=== PATIENT | female | born 1995 | race Caucasian/White ===

== ENCOUNTER 2021-06-02 12:52 | Outpatient (RCR) | payer OTHER, SELFPAY ==
[2021-06-02 14:21] LABS: Hematocrit 31.6 % (37.0-47.0); Hemoglobin 10.5 g/dL (12.0-15.0)
[2021-06-02 14:33] LABS: Glucose 1 Hour PP 50gm Dose 124 mg/dL
[2021-06-02 15:11] LABS: HIV 1/2 Ab P24 Ag Result Negative (Negative)
[2021-06-03 10:31] LABS: Rapid Plasma Reagin Non-Reactive (NonReactive)
[2021-06-03] MEDS: RHO(D) IMMUNE GLOBULIN 300 MCG/2 ML SYRINGE IM (11:41)
== END 2021-08-31 23:59 | disposition home or self-care (01) ==
LOC: ANHLAB 12:52
PROVIDERS: PCP Family Medicine; Visit Provider Obstetrics & Gynecology
DX: Z11.4 Encounter for screening for human immunodeficiency virus [HIV] (principal); Z29.13 Encounter for prophylactic Rho(D) immune globulin; O36.0130 Maternal care for anti-D [Rh] antibodies, third trimester, not applicable or unspecified; Z3A.00 Weeks of gestation of pregnancy not specified
CPT/HCPCS: 36415; 82947; 85014; 85018; 85461; 86592; 86703; 90384; 96372; G0432; J2790

== ENCOUNTER 2021-08-07 10:43 | Inpatient (IN) | payer OTHER, SELFPAY ==
[2021-08-07] VITALS (74 sets, daily range): BP systolic 93–129; BP diastolic 57–90; PULSE 63–137; RESP 12–19; TEMP 36.2; O2SAT 84–100; BMI 36.5
[2021-08-07 13:22] LABS: Basophils Absolute Auto 0.1 K/mm3 (0.0-0.1); Basophils Percent Auto 0.6 % (0.2-1.2); Eosinophils Absolute Auto 0.1 K/mm3 (0-0.3); Eosinophils Percent Auto 0.8 % (0-4.4); Hematocrit 35.6 % (37.0-47.0); Hemoglobin 11.9 g/dL (12.0-15.0); Immature Granulocyte Absolute 0.15 K/mm3 (0.00-0.031); Immature Granulocyte Percent A 1.8 % (0-0.5); Immature Platelet Fraction Pct 3.7 % (0.9-11.2); Lymphocytes Absolute Auto 1.75 K/mm3 (0.9-3.2); Lymphocytes Percent Auto 20.5 % (18.3-44.2); Mean Corpuscular HGB Conc 33.4 g/dl (32-36); Mean Corpuscular Hemoglobin 29.4 pg (26-34); Mean Corpuscular Volume 87.9 fl (80-100); Mean Platelet Volume 10.2 fl (7.4-10.4); Monocytes Absolute Auto 0.6 K/mm3 (0.1-0.6); Monocytes Percent Auto 7.1 % (2.6-8.5); Neutrophils Absolute Auto 5.9 K/mm3 (1.3-6.7); Neutrophils Percent Auto 69.2 % (45.5-73.1); Platelet Count Result 149 k/mm3 (150-375); Red Blood Count 4.05 M/mm3 (4.2-5.4); White Blood Count 8.5 K/mm3 (4.5-10.0)
[2021-08-07] MEDS: LACTATED RINGERS 1,000 ML 125 ML IV CONT ×2 (13:25→14:10)
--- NOTE | 2021-08-07 13:37 | LDADM ---
This patient, Kamlesh Pineda, was admitted to Labor/Delivery/Recovery 120 on 08/07/21 at 10:43. Plans for labor, pain management and were discussed with patient. Patient/family oriented to hospital policies and general routines including ID bracelet, bed and alarms, visiting hours, pain management, procedures, bathroom and other care routines, personal items, smoking policy, room service/diet and guest tray routines, security routines, and visiting hours. Patient/Family are encouraged to report perceived risks to care and to ask questions if they do not understand what they are told or what they should do. See OBIX for further documentation.
--- NOTE | 2021-08-07 14:50 | WPDANESEPPF ---
Anes - Initial Pre Proc Eval Procedure: Operation Date: 08/07/21 15:00 Proposed Procedures p Section - Twins with Bilateral Tubal Ligation - Veronica Stinson MD Date/Time: 08/07/21 14:50 Surgeon: Veronica Stinson MD Pre Op Diagnosis: C Section Patient Data Age: 25 Gender: F Height: 1.65 m Weight: 99.5 kg Last Vital Signs Pulse 105 H 08/07/21 13:46 BP 93/57 L 08/07/21 13:46 Allergies Allergy/AdvReac Type Severity Reaction Status Date / Time hydrocodone Allergy Unknown Rash Verified 07/03/21 16:30 Home Medications Medication Instructions Recorded Confirmed Type sertraline 50 mg tablet 75 mg PO DAILY #145 tablet 10/02/20 07/03/21 Rx [id number] fumarate-FA 1 tablet PO DAILY 08/07/21 08/07/21 History [] omeprazole [Prilosec] 20 mg PO DAILY 08/07/21 08/07/21 History propranolol 60 mg PO DAILY 08/07/21 08/07/21 History Laboratory Tests 08/07/21 08/07/21 13:09 13:09 WBC 8.5 K/mm3 K/mm3 (4.5-10.0) RBC 4.05 M/mm3 L M/mm3 (4.2-5.4) Hgb 11.9 g/dL L g/dL (12.0-15.0) Hct 35.6 % L % (37.0-47.0) MCV 87.9 fl fl (80-100) MCH 29.4 pg pg (26-34) MCHC 33.4 g/dl g/dl (32-36) RDW 16.0 % H % (11.5-14.5) Plt Count 149 k/mm3 L k/mm3 (150-375) MPV 10.2 fl fl (7.4-10.4) Immature Gran % (Auto) 1.8 % H % (0-0.5) Neut % (Auto) 69.2 % % (45.5-73.1) Lymph % (Auto) 20.5 % % (18.3-44.2) [place] % (Auto) 7.1 % % (2.6-8.5) Eos % (Auto) 0.8 % % (0-4.4) Baso % (Auto) 0.6 % % (0.2-1.2) Lymph # (Auto) 1.75 K/mm3 K/mm3 (0.9-3.2) [place] # (Auto) 0.6 K/mm3 K/mm3 (0.1-0.6) Eos # (Auto) 0.1 K/mm3 K/mm3 (0-0.3) Baso # (Auto) 0.1 K/mm3 K/mm3 (0.0-0.1) Abs Immat Gran (auto) 0.15 K/mm3 H K/mm3 (0.00-0.031) Absolute Neuts (auto) 5.9 K/mm3 K/mm3 (1.3-6.7) Absolute Nucleated RBC 0.0 K/mm3 K/mm3 (0.0-0.012) Nucleated RBC % 0.0 % % (0.0-0.2) % Immature Plt Fraction 3.7 % % (0.9-11.2) RPR Pending Patient hx anesthesia problems: none Family hx anesthesia problems: none PMFSH Surgical History Surgical History Status post cervical spinal fusion Family History Family History (Updated 07/28/21 @ 15:50 by Yessica Romero RN) Grandparent Family history of malignant neoplasm Carcinoma of colon Breast cancer Grandparent Breast cancer Social History Social History Smoking packs per day: 0.5 Smoking cigarettes per day: 10.0 Years smoked: 1 Smoking pack-years: 0.50 Smoking status: Former smoker Second hand tobacco smoke exposure: No Smoking end date: 11/21/15 Alcohol intake: never Substance use: never Spiritual care concerns: No Anes - Eval Final PreProcedure Day of Procedure 08/07/21 14:50 Patient weight: obese Heart: regular rate and rhythm Lungs: clear to auscultation and normal air movement Airway: Mallampati scale class II Neurological: alert and oriented Last oral intake: >/= 8 hours ASA classification: III Emergent: no Anesthetic plan: proceed Anesthesia type and monitoring: regional spinal Informed Consent: The patient's anesthetic plan and its attendant risks and benefits were discussed with the patient/family/POA. Questions were solicited and answers provided to the satisfaction of the patient/family/POA.
--- NOTE | 2021-08-07 15:09 | WPDHPUPDATE1 ---
History and Physical Update Update Date/Time: 08/07/21 15:09 History and Physical has been reviewed, including an updated exam of the patient. There are NO changes in the patient's condition. Risks, benefits, and alternatives have been discussed and questions answered. Patient agrees to proceed with procedure.
--- NOTE | 2021-08-07 15:10 | PM.IMHP ---
H&P: HPI History of Present Illness Date/Time: 08/07/21 15:10 this patient is a 25-year-old multiparous female with a twin gestation at 36 weeks gestation. She presents in labor. She has a previous delivery. There was reassuring status for the twins. She reports movement. She denies any loss of fluid or vaginal bleeding. She denies any headache, blurry vision, epigastric pain. She denies any chest pain or shortness of breath. She denies any nausea vomiting fevers chills. Chief Complaint: Labor, twins Review of Systems Review of Systems: All systems reviewed & are unremarkable except as noted in HPI and below PMFSH Surgical History Surgical History Status post cervical spinal fusion Family History Family History (Updated 07/28/21 @ 15:50 by Yessica Romero RN) Grandparent Family history of malignant neoplasm Carcinoma of colon Breast cancer Grandparent Breast cancer Social History Social History Smoking packs per day: 0.5 Smoking cigarettes per day: 10.0 Years smoked: 1 Smoking pack-years: 0.50 Smoking status: Former smoker Second hand tobacco smoke exposure: No Smoking end date: 11/21/15 Alcohol intake: never Substance use: never Spiritual care concerns: No Meds Home Medications and Allergies Home Medications Medication Instructions Recorded Confirmed Type sertraline 50 mg tablet 75 mg PO DAILY #145 tablet 10/02/20 07/03/21 Rx [id number] fumarate-FA 1 tablet PO DAILY 08/07/21 08/07/21 History [] omeprazole [Prilosec] 20 mg PO DAILY 08/07/21 08/07/21 History propranolol 60 mg PO DAILY 08/07/21 08/07/21 History Allergies Allergy/AdvReac Type Severity Reaction Status Date / Time hydrocodone Allergy Unknown Rash Verified 07/03/21 16:30 Vital Signs Vital Signs - 24 hr 08/07/21 13:23 08/07/21 13:31 08/07/21 13:46 Pulse Rate 93 100 105 H Blood Pressure 105/61 95/62 L 93/57 L Exam Const: General: healthy appearing, comfortable and no acute distress Resp: Auscultation: clear to auscultation bilaterally, no rales, no rhonchi and no wheezes Cardio: Rate: regular rate Heart sounds: no click, no murmurs and no rubs GI: Inspection: non-distended Auscultation: normal bowel sounds Extrem: General: normal to inspection, no pedal edema and no calf tenderness H&P: Results Labs Labs: Short CBC 08/07/21 Range/Units 13:09 WBC 8.5 (4.5-10.0) K/mm3 Hgb 11.9 L (12.0-15.0) g/dL Hct 35.6 L (37.0-47.0) % Plt Count 149 L (150-375) k/mm3 Assessment and Plan Assessment and plan (1) Twin gestation in third trimester: Code(s): O30.003 - Twin , unspecified number of placenta and unspecified number of amniotic sacs, third trimester Status: Acute (2) Active labor: Status: Acute (3) Previous section: Code(s): Z98.891 - History of uterine scar from previous surgery Status: Acute Additional Plan This patient is a 25-year-old multiparous female at 36 weeks gestation with twins and active labor. She has a previous delivery and we had agreed to perform repeat delivery. She understands the risks, benefits, and alternatives. She has completed the informed consent process and is ready to proceed.
[2021-08-07] MEDS: ceFAZolin 2 GM/D5W 50 ML 2 GM/50 ML BAG IVPB (15:31)
--- NOTE | 2021-08-07 16:28 | W.PM.PROC2 ---
Procedure Note - Detailed Date of Procedure 08/07/21 Pre-op Diagnosis Previous , twins, labor, a 36 week gestation Post-op Diagnosis same Procedure Performed Low-transverse section of twins Surgeon Veronica Stinson MD Anesthesia spinal Findings Normal gestational maternal anatomy, twin gestation-reasonable size/wait for 36 weeks, normal Apgars. Description of Procedure The patient was taken the operating room. She was prepped and draped in dorsal supine position with a leftward tilt. This was done after spinal anesthetic was applied. A low-transverse skin incision was made and carried down till of the fascia with the knife. The fascial incision was made with the knife. The fascial incision was extended laterally with Araujo scissors. The fascia was tented upward superiorly and inferiorly the rectus muscles were dissected off bluntly. The rectus muscles were the midline. The preperitoneal fat and peritoneum were dissected open bluntly at the superior aspect of the rectus muscles. The peritoneal incision was extended superior and inferior with good position of bladder. The uterine incision was made with a scalpel down to the level of the amniotic cavity. The amniotic cavity was entered bluntly. Baby a and B were both delivered breech. Arms reduced on each baby after delivering lower extremities and trunk. Head easily delivered. The cord of each was clamped and cut and the was handed off to waiting pediatric staff. Cord bloods were obtained. The placenta was removed manually. The uterus was exteriorized. The uterus was cleared of all clots, debris and membranes. The uterus was closed in 0 Vicryl running lock fashion. An imbricating over a was placed along the incision line as well. The uterus was returned to the abdomen. The gutters were cleared of all clots and debris. The fascia was closed with 0 Vicryl running fashion. The subcutaneous tissue was irrigated pinpoint bleeders were cauterized. The skin was closed with subcuticular absorbable johnathan. The skin incision line was covered with glue. The patient tolerated the procedure well. She has taken recovery room in stable condition. Sponge lap and needle counts were correct x2. Estimated Blood Loss 780 Complications No immediate complications Condition stable Disposition PACU
[2021-08-07] MEDS: OXYTOCIN 30 UNITS/NS 500 ML 30 UNITS/500 ML BAG 125 UNITS IV CONT ×2 (16:55→18:52)
--- NOTE | 2021-08-07 17:18 | SUR.PHASEI ---
1700--Dr. Stinson at BS to check on pt., orders received to increase current IVF rate and then hang another bag of pitocin at 125cc/hr after this one infuses.
--- NOTE | 2021-08-07 17:56 | SUR.PHASEI ---
3414--Update to Dr. Stinson re: bleeding and clots noted with fundal massage. No new orders received at this time.
--- NOTE | 2021-08-07 19:28 | OBPPTRN ---
Patient transferred to post room #277 via bed. Support person present. Oriented to unit, room, information board, rooming in, admission packet and security measures. Patient verbalizes understanding.
[2021-08-07] MEDS: KETOROLAC 30 MG/ML VIAL (*BKC) IV PUSH (19:54)
[2021-08-07] MEDS: PROPRANOLOL HCL 60 MG CAPSULE CR PO (21:38)
--- NOTE | 2021-08-07 21:50 | PC.NURSE ---
Mom to nursery per wheelchair to see babies
[2021-08-07] MEDS: DEXTROSE 5%/0.45% SOD CHL 1,000 ML 125 ML IV CONT (23:36)
[2021-08-08] VITALS (8 sets, daily range): BP systolic 88–98; BP diastolic 55–66; PULSE 63–91; RESP 16–18; TEMP 35.8–36.8; O2SAT 95–100
--- NOTE | 2021-08-08 00:15 | PC.NURSE ---
Pt returned from visiting babies in nursery. Pt back to bed.
[2021-08-08 04:45] LABS: Basophils Percent Auto 0.3 % (0.2-1.2); Eosinophils Percent Auto 0.3 % (0-4.4); Hematocrit 26.7 % (37.0-47.0); Hemoglobin 8.6 g/dL (12.0-15.0); Immature Granulocyte Absolute 0.07 K/mm3 (0.00-0.031); Immature Granulocyte Percent A 0.8 % (0-0.5); Lymphocytes Absolute Auto 1.46 K/mm3 (0.9-3.2); Lymphocytes Percent Auto 15.7 % (18.3-44.2); Mean Corpuscular HGB Conc 32.2 g/dl (32-36); Mean Corpuscular Hemoglobin 29.5 pg (26-34); Mean Corpuscular Volume 91.4 fl (80-100); Monocytes Absolute Auto 0.9 K/mm3 (0.1-0.6); Monocytes Percent Auto 9.7 % (2.6-8.5); Neutrophils Absolute Auto 6.8 K/mm3 (1.3-6.7); Neutrophils Percent Auto 73.2 % (45.5-73.1); Platelet Count Result 106 k/mm3 (150-375); Red Blood Count 2.92 M/mm3 (4.2-5.4); Red Cell Distribution Width 15.9 % (11.5-14.5); White Blood Count 9.3 K/mm3 (4.5-10.0)
--- NOTE | 2021-08-08 07:10 | PM.OBPNVD ---
OB - PN: Subj Subjective Date/time seen: 08/08/21 07:10 Patient comments: no complaints, pain well controlled, tolerating diet and flatus present baby status: doing well OB - PN: Obj Data Labs CBC & Chem 7: 08/08/21 04:18 Labs: Laboratory Results - last 24 hr 08/07/21 08/07/21 08/08/21 13:09 13:09 04:18 WBC 8.5 9.3 RBC 4.05 L 2.92 L Hgb 11.9 L 8.6 L D Hct 35.6 L 26.7 L MCV 87.9 91.4 MCH 29.4 29.5 MCHC 33.4 32.2 RDW 16.0 H 15.9 H Plt Count 149 L 106 L MPV 10.2 10.0 Immature Gran % (Auto) 1.8 H 0.8 H Neut % (Auto) 69.2 73.2 H Lymph % (Auto) 20.5 15.7 L [place] % (Auto) 7.1 9.7 H Eos % (Auto) 0.8 0.3 Baso % (Auto) 0.6 0.3 Lymph # (Auto) 1.75 1.46 [place] # (Auto) 0.6 0.9 H Eos # (Auto) 0.1 0.0 Baso # (Auto) 0.1 0.0 Abs Immat Gran (auto) 0.15 H 0.07 H Absolute Neuts (auto) 5.9 6.8 H Absolute Nucleated RBC 0.0 0.0 Nucleated RBC % 0.0 0.0 % Immature Plt Fraction 3.7 Blood Type O Negative Antibody Screen Negative Screen Baby's Blood Type Baby's TANGELA Doses of RhIg Required 08/08/21 04:18 WBC RBC Hgb Hct MCV MCH MCHC RDW Plt Count MPV Immature Gran % (Auto) Neut % (Auto) Lymph % (Auto) [place] % (Auto) Eos % (Auto) Baso % (Auto) Lymph # (Auto) [place] # (Auto) Eos # (Auto) Baso # (Auto) Abs Immat Gran (auto) Absolute Neuts (auto) Absolute Nucleated RBC Nucleated RBC % % Immature Plt Fraction Blood Type O Negative Antibody Screen TNP Screen Negative Baby's Blood Type A pos Baby's TANGELA Negative Doses of RhIg Required 1 OB - PN A/P Plan day: 1 Plan: routine care Time Spent With Patient Time: Total time spent is greater than 50% in coordination of care (as documented) at patient's floor/unit and/or counseling patient: Time with patient: less than 15 minutes Review of Systems Review of Systems: All systems reviewed & are unremarkable except as noted in HPI and below Exam Narrative: Fundus firm. Vaginal flow controlled. Incision dry and intact. Negative homans. No redness, warmth, or pain of lower ext. Const: General: comfortable Chest: Breast/axilla inspection: normal inspection of the breasts Resp: Effort & Inspection: normal respiratory effort Auscultation: clear to auscultation bilaterally Cardio: Rate: regular rate GI: GI Palp: Yes Soft to palpation Psych: Appearance: grossly normal Affect: normal affect Attitude: cooperative Thought content: Yes Normal thought content present Judgement: Good judgement present (Psych)
[2021-08-08] MEDS: MULTIVIT/MIN/PREN/FOL AC/IRON TABLET 1 TAB PO (08:28)
[2021-08-08] MEDS: IBUPROFEN 600 MG TABLET PO ×3 (08:29→21:29)
[2021-08-08] MEDS: POLYSACCHARIDE IRON COMPLEX 150 MG CAPSULE PO ×2 (08:29→16:07)
[2021-08-08] MEDS: DOCUSATE SODIUM 100 MG CAPSULE PO ×2 (08:29→16:07)
[2021-08-08] MEDS: oxyCODONE/ACETAMINOPHEN (*CRX) 5-325 MG TABLET 1 TABLET PO ×4 (08:30→21:29)
--- NOTE | 2021-08-08 08:41 | WPDANLDPN2 ---
Anes-Prog Note L&D Date/Time: 08/08/21 08:41 Comfortable throughout: section Neuraxial method: spinal Epidural/Spinal procedure site: clean & non-tender Neuro status: Neuro function grossly intact. Cardiovascular status: normal Respiratory status: normal Airway patency: baseline Mental status: baseline Post-Op hydration status: normal Vital Signs: Last Vital Signs Temp 98.0 F 08/08/21 05:00 Pulse 91 08/08/21 05:00 Resp 18 08/08/21 05:00 BP 93/57 L 08/08/21 05:00 Pulse Ox 99 08/08/21 05:00 Pain score (VAS): 0 I/O: Intake & Output 08/07/21 08/08/21 08/08/21 23:59 07:59 15:59 Intake Total 1000 750 Output Total 2114 800 Balance -1114 -50 Post-procedural complaints: pruritis mild, no treatment Patient feedback: Patient satisfied with anesthetic care.
--- NOTE | 2021-08-08 08:42 | WPDANLDNPN2 ---
Anes-Prog Note L&D-Neuraxial Date/Time: 08/08/21 08:42 Neuraxial medications: intrathecal PF morphine Opiod-related complaints: pruritis mild, no treatment (continues to have mild pruritis this morning, denies need for meds) Patient feedback: Patient satisfied with post-operative pain management.
[2021-08-08] MEDS: RHO(D) IMMUNE GLOBULIN 300 MCG/2 ML SYRINGE IM (17:47)
[2021-08-08] MEDS: SIMETHICONE 80 MG TAB.CHEW PO (21:29)
[2021-08-08] MEDS: PROPRANOLOL HCL 60 MG CAPSULE CR PO (21:30)
[2021-08-08] MEDS: TETANUS,DIPHTHERIA,AC PERTUSSIS ADULT (0.5 ML) BOOSTRIX IM (21:31)
[2021-08-09 05:00] VITALS: BP 90/58; PULSE 91; RESP 18; TEMP 36.8; O2SAT 95
[2021-08-09] MEDS: oxyCODONE/ACETAMINOPHEN (*CRX) 5-325 MG TABLET 1 TABLET PO ×3 (05:14→13:10)
[2021-08-09] MEDS: IBUPROFEN 600 MG TABLET PO ×2 (05:14→13:09)
[2021-08-09 05:46] LABS: Hematocrit 26.4 % (37.0-47.0); Hemoglobin 8.5 g/dL (12.0-15.0); Mean Corpuscular HGB Conc 32.2 g/dl (32-36); Mean Corpuscular Hemoglobin 29.3 pg (26-34); Mean Platelet Volume 9.8 fl (7.4-10.4); Platelet Count Result 128 k/mm3 (150-375); Red Cell Distribution Width 16.1 % (11.5-14.5); White Blood Count 8.7 K/mm3 (4.5-10.0)
[2021-08-09 08:30] VITALS: BP 108/65; PULSE 86; RESP 16; TEMP 36.4; O2SAT 99
[2021-08-09] MEDS: DOCUSATE SODIUM 100 MG CAPSULE PO (08:47)
[2021-08-09] MEDS: POLYSACCHARIDE IRON COMPLEX 150 MG CAPSULE PO (08:47)
[2021-08-09] MEDS: MULTIVIT/MIN/PREN/FOL AC/IRON TABLET 1 TAB PO (08:47)
--- NOTE | 2021-08-09 09:36 | PM.OBPNVD ---
OB - PN: Subj Subjective Date/time seen: 08/09/21 09:36 Patient comments: no complaints, pain well controlled, tolerating diet and flatus present Narrative: Babies both transferred but doing well. Pt desire discharge. Pt up walking in the halls without difficulty. OB - PN: Obj Data Labs CBC & Chem 7: 08/09/21 05:12 Labs: Laboratory Results - last 24 hr 08/08/21 08/09/21 04:18 05:12 WBC 8.7 RBC 2.90 L Hgb 8.5 L Hct 26.4 L MCV 91.0 MCH 29.3 MCHC 32.2 RDW 16.1 H Plt Count 128 L MPV 9.8 Blood Type O Negative Antibody Screen TNP Screen Negative Baby's Blood Type A pos Baby's TANGELA Negative Doses of RhIg Required 1 OB - PN A/P Plan day: 2 Plan: routine care and discharge home (Follow up in 1 week) Comments: Discharge home if repeat h&h and platelets stable. Time Spent With Patient Time: Total time spent is greater than 50% in coordination of care (as documented) at patient's floor/unit and/or counseling patient: Time with patient: less than 15 minutes Review of Systems Review of Systems: All systems reviewed & are unremarkable except as noted in HPI and below Exam Narrative: Fundus firm. Vaginal flow controlled. Incision dry and intact. Negative homans. No redness, warmth, or pain of lower ext. Const: General: comfortable Chest: Breast/axilla inspection: normal inspection of the breasts Resp: Effort & Inspection: normal respiratory effort Auscultation: clear to auscultation bilaterally Cardio: Rate: regular rate GI: GI Palp: Yes Soft to palpation Psych: Appearance: grossly normal Affect: normal affect Attitude: cooperative Thought content: Yes Normal thought content present Judgement: Good judgement present (Psych)
--- NOTE | 2021-08-09 11:34 | PC.NURSE ---
Patient instructed on viewing the discharge video Mother & Baby Care, The First Two Weeks . Patient was given the opportunity and encouraged to ask questions. Patient verbalized understanding of information shared and has been given the mother/baby guide for home reference.
[2021-08-09 12:48] LABS: Hematocrit 27.6 % (37.0-47.0); Hemoglobin 8.8 g/dL (12.0-15.0); Mean Corpuscular HGB Conc 31.9 g/dl (32-36); Mean Corpuscular Hemoglobin 29.1 pg (26-34); Mean Corpuscular Volume 91.4 fl (80-100); Mean Platelet Volume 9.6 fl (7.4-10.4); Platelet Count Result 128 k/mm3 (150-375); Red Blood Count 3.02 M/mm3 (4.2-5.4); Red Cell Distribution Width 16.3 % (11.5-14.5); White Blood Count 9.7 K/mm3 (4.5-10.0)
[2021-08-10 10:08] LABS: Rapid Plasma Reagin Non-Reactive (NonReactive)
[2021-08-12 14:25] VITALS: BP 115/67; PULSE 87; RESP 20; TEMP 37.2; O2SAT 100
--- NOTE | 2021-08-29 18:25 | PM.OBDSVD ---
DS: Admitting Diagnosis Discharge Date 08/09/21 Admitting Diagnosis term DS: Discharge Diagnosis Discharge Diagnosis (1) delivery delivered: Code(s): O82 - Encounter for delivery without indication Status: Acute OB - DS: Summary OB Procedures : None OB Procedures Intrapartum: OB Procedures: : None Peripartum Data Procedures: Procedures Operation Date: 08/07/21 15:00 Actual Procedure Side Surgeon p Section Veronica Stinson MD Time Spent with Patient Time attestation: Total time spent providing and/or coordinating discharge services: DS: Data Data Completed and Pending Completed studies during hospitalization: Pending at discharge 08/07/21 17:32 Surgical [PTH] Routine Discharge Plan Discharge Attending physician on discharge: Veronica Stinson Consulting providers: Lou Edwards ; Tony Doshi Discharging Clinician: Lou Edwards Patient Disposition: Home, Self-Care Activity: no driving and pelvic rest Diet: as tolerated Discharge Instructions: Education: Mom and Baby Guide Given to: Mother Follow-Up: Call your delivering provider's office for an appointment to be seen in: call for appointment Mom and baby should come to the [facility] for the follow-up appointment. Appointment Date/Time: August 12, 2021 at 2:30 am What to expect at your follow-up visit: Physical Assessment Call [phone] if you are unable to keep your appointment time. BREAST CARE: * Wear a snug supportive bra. Bottle Feeding: * May apply ice packs ABDOMINAL INCISION: (if applicable) * Allow incision to air dry * Do NOT use lotions for powders on your incision * When showering, allow soap and water to run over the incision, but do not wash incision EPISIOTOMY/PERINEAL CARE: * Until bleeding stops, use your luis bottle after urinating * Change your pad frequently throughout the day * No tub baths until seen by your physician - You may shower ACTIVITY: * Rest as much as possible. * Do not exercise or lift anything heavier than your baby (such as laundry or other children.) * Avoid stairs or driving as much as possible. * Do not put anything into the vagina. No douching, tampons, or sexual activity until seen by physician. NOTIFY PHYSICIAN IF YOU HAVE ANY QUESTIONS OR IF ANY OF THE FOLLOWING SYMPTOMS OCCUR: * If your incision becomes red, swollen, or more painful than what you have experienced in the hospital. * If your vaginal bleeding becomes foul smelling. * If your vaginal bleeding becomes more heavy than a period or if your bleeding changes from pink to bright red. However, you may pass an occasional walnut-sized clot once or twice for the first week . * If you experience a sharp, shooting pain in you calves. * If you discover a hard, reddened area on your breast or if you experience flu-like symptoms. DIET: * Eat regular, well-balanced meals. * Drink plenty of fluids daily. If , drink to thirst. Stand Alone Forms: General Discharge Information Follow-up/Referrals: Veronica Stinson MD [Physician] - Discharge Medications: New ibuprofen 600 mg Tablet 600 mg PO Q6H PRN (Reason: Cramping) Qty: 20 RF: 0 oxycodone-acetaminophen [Endocet] 5-325 mg tablet 1 tablet PO Q6H PRN (Reason: pain) Qty: 20 RF: 0 Continued omeprazole 20 mg Capsule,Delayed Release(Dr/Ec) 20 mg PO DAILY RF: 0 28-800 mg-mcg Tablet 1 tablet PO DAILY RF: 0 propranolol 60 mg capsule,extended release 24 hr 60 mg PO DAILY RF: 0 sertraline 50 mg tablet 75 mg PO DAILY Qty: 145 RF: 3 Date of admission: 08/07/21 10:43 Primary Care Provider: Felton Cook Admitting Provider: Veronica Stinson Attending physician on admission: Veronica Stinson Condition: Stable
== END 2021-08-09 13:16 | disposition home or self-care (01) | DRG 785 ==
LOC: ANHLDR 12:45 → ANHOB2 20:40
PROVIDERS: Advanced Practice Midwife; Admitting Provider Obstetrics & Gynecology; PCP Family Medicine; Visit Provider Obstetrics & Gynecology
PROC: (CPT 59514; principal; 2021-08-17 12:00)
DX: O30.003 Twin pregnancy, unspecified number of placenta and unspecified number of amniotic sacs, third trimester (principal); Z3A.36 36 weeks gestation of pregnancy; Z37.2 Twins, both liveborn; O34.211 Maternal care for low transverse scar from previous cesarean delivery; O99.73 Diseases of the skin and subcutaneous tissue complicating the puerperium; L29.9 Pruritus, unspecified; O99.214 Obesity complicating childbirth; E66.9 Obesity, unspecified; O32.1XX1 Maternal care for breech presentation, fetus 1; O32.1XX2 Maternal care for breech presentation, fetus 2; O99.344 Other mental disorders complicating childbirth; F41.9 Anxiety disorder, unspecified; Z30.2 Encounter for sterilization
CPT/HCPCS: 36415; 85025; 85027; 85055; 85461; 86592; 86850; 86900; 86901; 88302; 90384; 90715; A9270; J0131; J0690; J1885; J2274; J2370; J2405; J2590; J2790; J3010; J7120

== ENCOUNTER 2022-09-18 10:42 | Emergency (ER) | payer OTHER, SELFPAY ==
[2022-09-18 10:51] VITALS: BP 132/100; PULSE 84; RESP 16; TEMP 36.3; O2SAT 100
--- NOTE | 2022-09-18 10:55 | ED.URI ---
HPI - URI/Sore Throat General Chief Complaint: Skin/Abscess/Foreign Body Stated Complaint: cyst on tailbone Time Seen by Provider: 09/18/22 10:56 Source: patient Mode of arrival: ambulatory Limitations: no limitations History of Present Illness HPI Narrative: 26 y/o female presented for c/o painful cyst to tailbone worsening for 2 days. She has applied hydrogen peroxide and attempted to poke it, but denies drainage. States pain is severe with sitting or movement. Denies fever or chills. Last pilonidal cyst 06/2021 during , treated with antibiotics. Related Data Allergies Allergy/AdvReac Type Severity Reaction Status Date / Time hydrocodone Allergy Unknown Rash Verified 07/03/21 16:30 Review of Systems Review of Systems: CONSTITUTIONAL: Denies body aches, fever, chills, or sweats. EYES: Denies visual changes, redness, or discharge. CARDIOVASCULAR: Denies chest pain, palpitations, or edema. RESPIRATORY: Denies cough or dyspnea. GASTROINTESTINAL: Denies abdominal pain, nausea, vomiting, or diarrhea. SKIN: reports skin redness, pain to tailbone MUSCULOSKELETAL: Denies back pain, joint pain, or myalgia. [facility] Surgical History Surgical History Status post cervical spinal fusion Family History Family History Grandparent Family history of malignant neoplasm Carcinoma of colon Breast cancer Grandparent Breast cancer Social History Social History Smoking packs per day: 0.5 Smoking cigarettes per day: 10.0 Years smoked: 1 Smoking pack-years: 0.50 Smoking status: Former smoker Second hand tobacco smoke exposure: No Smoking end date: 11/21/15 Alcohol intake: never Substance use: never Spiritual care concerns: No Comments At time of signature, I have reviewed and agree with nursing past medical, surgical, social and family history unless otherwise noted. Please see nursing chart for further information. There is no relevant family history pertinent to the presenting complaint Exam Narrative: GENERAL: Well-appearing EYES: conjunctivae clear, and EOMI. ENT: Mucous membranes moist. CHEST: Clear to auscultation. HEART: Regular rate and rhythm. SKIN: Warm, dry. Pilonidal cyst with erythema, induration and tenderness right of midline approx 3cm diameter; no active drainage, mild fluctuance; spreads to left of midline approx 2cm diameter without erythema or fluctuance, tender to palpation, no active drainage NEURO: Alert and oriented x3. Course Course Emergency Course: Patient is aware of diagnosis, understands and agrees to treatment plan. Anticipatory guidance given. Patient agrees to follow-up as directed and is aware of reasons to seek care at the emergency department. Portions of this record may have been created with voice recognition software Level of Care: Express Care Visit Vital Signs Vital signs: Vital Signs Temperature 97.4 F L 09/18/22 10:51 Pulse Rate 84 09/18/22 10:51 Respiratory Rate 16 09/18/22 10:51 Blood Pressure 132/100 H 09/18/22 10:51 Pulse Oximetry 100 09/18/22 10:51 Temperature 97.4 F L 09/18/22 10:51 Pulse Rate 84 09/18/22 10:51 Respiratory Rate 16 09/18/22 10:51 Blood Pressure 132/100 H 09/18/22 10:51 Pulse Oximetry 100 09/18/22 10:51 Reviewed Procedures Abscess I/D tailbone: Date of Incision: 09/18/22 Local Anesthetic: lidocaine 1% and with epi Amount of anesthesia used (mL): 2 Technique: incised with #11 blade I&D Results: Nothing Abcess I&D Additional Comments: Patient was informed prior to procedure results may not improve symptoms, and incision may not result in drainage due to minimal fluctuance; patient was agreeable to attempt procedure. Incision made to site of mild fluctuance, nothing expe
== END 2022-09-18 11:38 | disposition home or self-care (01) ==
PROVIDERS: Emergency Provider Nurse Practitioner Family; PCP Family Medicine
DX: L05.91 Pilonidal cyst without abscess (principal); Z87.891 Personal history of nicotine dependence
CPT/HCPCS: 10080; 99213; G0463

== ENCOUNTER → 2022-12-03 12:12 | Outpatient (CLI) | payer OTHER, SELFPAY ==
--- NOTE | ~2022-12-03 | XR_ITS ---
EXAMINATION: XR chest 2V DATE: 12/03/2022 12:24 INDICATION: Shortness of breath. Chest pain. TECHNIQUE: Frontal and lateral views of the chest were obtained. COMPARISON: CT thoracic spine 02/09/2019 FINDINGS: The chest demonstrates clear lungs without pneumonia, pleural effusion, or pneumothorax. Th e heart size is normal. There are changes of anterior fusion procedure in cervical spine. IMPRESSION: 1. No acute cardiopulmonary disease. Reviewed, dictated and finalized at location A. [employer]
== END ==
PROVIDERS: PCP Family Medicine; Visit Provider Physician Assistant
DX: R06.02 Shortness of breath (principal)
CPT/HCPCS: 71046

== ENCOUNTER 2025-09-22 08:01 | Emergency (ER) | payer OTHER, SELFPAY ==
--- NOTE | 2025-09-22 08:04 | ED.SKABFB ---
HPI - Skin/Abscess/Foreign Bdy General Chief complaint: Wound/Laceration Stated complaint: ABSCESS Time Seen by Provider: 09/22/25 08:03 Source: patient Mode of arrival: ambulatory Limitations: no limitations History of Present Illness HPI narrative: Jaswinder is a 29 year old female patient presenting to clinic today with c/o possible abscess to her tailbone. She reports symptoms have been going on for 5-6 days. Her attempted to drain it with a sterile needle at home without success. History of pilonidal cyst/abscess in the past. Denies any fevers or chills. Has had some body aches. No drainage currently Related Data Allergies Allergy/AdvReac Type Severity Reaction Status Date / Time hydrocodone Allergy Unknown Rash Verified 09/22/25 08:11 Review of Systems Review of Systems: Pertinent positives per HPI. Patient denies any fever, chills, rash, headache, visual changes, dizziness, cough, shortness of breath, chest pain, palpitations, nausea, vomiting, diarrhea, constipation, abdominal pain, or any urinary issues. [facility] Surgical History Surgical History H/O tubal ligation Status post cervical spinal fusion Family History Family History Grandparent Family history of malignant neoplasm Carcinoma of colon Breast cancer Grandparent Breast cancer Social History Social History Smoking packs per day: 0.5 Smoking cigarettes per day: 10.0 Years smoked: 1 Smoking pack-years: 0.50 Smoking status: Former smoker Second hand tobacco smoke exposure: No Smoking end date: 11/21/15 Alcohol intake: never Substance use: never Lack of Transportation: No Lack of Food: Never True Current Housing: I Have Housing Concerned About Future Housing: No Difficulty Paying Gas/Electric Bills: No Difficulty Paying for Meds: No Currently Unemployed: No Education: Bachelor's Degree Difficulty w/ Childcare or Family Care: No Spiritual care concerns: No Comments At the time of my signature, I reviewed and agree with the nursing past medical, surgical, social, and family history. There is no relevant family history pertinent to the patient complaint. Exam Narrative: General: Well-developed, well nourished, in no apparent distress Head: Normocephalic, atraumatic. Cardio: Regular rate and rhythm, s1 and s2 normal, no murmur appreciated. Resp: Clear to auscultation bilaterally, no rhonchi, rales, wheezing or rubs. Integumentary: [place], warm, and dry, 4 x 4 cm indurated pilonidal abscess with mild fluctuance over the tailbone, mild redness, tenderness to palpation Course Course Emergency Course: Portions of this record may have been created with voice recognition software. Level of Care: Express Care Visit Vital Signs Vital signs: Vital Signs Temperature 36.4 C 09/22/25 08:12 Pulse Rate 87 09/22/25 08:12 Respiratory Rate 16 09/22/25 08:12 Blood Pressure 124/86 09/22/25 08:12 Pulse Oximetry 100 09/22/25 08:12 Temperature 36.4 C 09/22/25 08:12 Pulse Rate 87 09/22/25 08:12 Respiratory Rate 16 09/22/25 08:12 Blood Pressure 124/86 09/22/25 08:12 Pulse Oximetry 100 09/22/25 08:12 Vital signs reviewed MDM - Skin/Abscess/Foreign Bdy MDM Narrative Medical decision making narrative: At the time of visit patient is resting comfortably on the exam table. Patient appears to be nontoxic. C/o possible abscess to her tailbone. She reports symptoms have been going on for 5-6 days. Her attempted to drain it with a sterile needle at home without success. History of pilonidal cyst/abscess in the past. Denies any fevers or chills. Has had some body aches. No drainage currently. On exam patient has 4 x 4 cm indurated pilonidal abscess with mild fluctuance over the tailbone, mild redness, tenderness to palpation Procedure: Incision and drainage procedure was completed in the clinic today. Verbal consent was obtained. Area was numbed using lidocaine with epi .3 mL was lidocaine with epi was injected. Incision 0.5 cm was performed using an 11 blade. Bloody brown purulent discharge was expressed and wound culture was obtained. Quarter-inch iodoform packing was inserted into the abscess bed. Dressing was applied Labs: Wound culture obtained and sent to the lab Plan: Patient has pilonidal abscess. Incision and drainage was performed in the clinic today. Wound culture was obtained and sent to the lab. Prescriptions for Augmentin and metronidazole was sent to the pharmacy. Supportive measures were discussed with the patient and they voiced understanding discharge instructions and agrees to treatment plan. Return precautions reviewed Differential Diagnosis Differential diagnosis: Likely abscess of skin or subcutaneous tissue, cellulitis and other (cyst, perirectal abscess, pilonidal abscess) Discharge Plan Discharge Clinical Impression: Pilonidal abscess Patient Disposition: Home Condition: Stable Instructions: Antibiotic Form, Pilonidal Cyst (ED) Additional Instructions: Incision and drainage was performed in the clinic today. Take Augmentin and Metronidazole as prescribed Wash wound 1-2 times daily with soap water and pat dry. Wound was packed with 1/2 quarter-inch iodoform-if this falls out on its own it may stay out. Follow up with your PCP in 3 days for wound check/packing removal May take Tylenol 1 g and Motrin 600 mg to 800 mg every 8 hours as needed for pain May take a daily probiotic 2 hours before 2 hours after taking with the antibiotic doses Go to the emergency room if symptoms worsen-you develop fever controlled by Tylenol or Motrin, nausea, vomiting, increase in pain, increase in redness, streaking, or any other concerning symptoms. Patient Language: Surinamese Prescriptions: New amoxicillin-pot clavulanate 875-125 mg tablet 1 tablet PO Q12H 7 Days Qty: 14 0RF metronidazole 500 mg tablet 500 mg PO Q8H 7 Days Qty: 21 0RF No Action Qulipta 30 mg tablet 30 mg PO DAILY Qty: 90 3RF Ubrelvy 50 mg tablet 50 mg PO ONCE Qty: 14 5RF Rx Instructions: as a single dose; may repeat once in >=2 hours after first dose if needed ondansetron HCl 4 mg tablet 4 mg PO Q6H PRN (Reason: nausea and vomiting) Qty: 30 3RF fluoxetine 20 mg capsule 20 mg PO DAILY Qty: 90 1RF propranolol 120 mg capsule,extended release 24 hr 120 mg PO DAILY Qty: 90 1RF Follow-up/Referrals: Felton Cook MD [Primary Care Provider, [facility]] Time of Disposition: 09:00 Quality NIHSS Nursing Documentation ED NIHSS nursing documentation: reviewed/agree
[2025-09-22 08:12] VITALS: BP 124/86; PULSE 87; RESP 16; TEMP 36.4; O2SAT 100
[2025-09-22] MEDS: LIDO 1%/EPINEPHRINE 1:100,000 20 ML VIAL 10 ML INFILTRATE (08:23)
== END 2025-09-22 09:10 | disposition home or self-care (01) ==
PROVIDERS: Emergency Provider Nurse Practitioner Family; PCP Family Medicine
DX: L05.01 Pilonidal cyst with abscess (principal); Z87.891 Personal history of nicotine dependence
CPT/HCPCS: 10080; 87070; 87186; 87205; 99213; G0463; J2004